=== PATIENT | male | born 1960 | race Hispanic/Latino ===

== ENCOUNTER → 2017-10-22 | Day surgery (SDC) | payer MEDICARE, OTHER ==
[~2017-10-22] MED LIST: ALPRAZOLAM 0.5 MG TAB ONE; B COMPLEX1 EACH PO; COLACE100 MG PO; FEOSOL325 MG PO; HYOSCYAMINE SULFATE 0.5 MG/ML AMP ONE; LOSARTAN POTAS100 MG PO; METOPROLOL SUCC50 MG PO; MIDAZOLAM HCL 2 MG/2 ML VIAL ONE; NORCO 7.5-3251 EACH PO; PROPOFOL IV EMULSION 10 MG/ML 50 ML VIAL ONE; SIMETHICONE 40 MG/0.6 ML BTL ONE; ULTRAM 50MG50 MG PO
--- NOTE | 2017-10-22 11:02 | Operative Report ---
DATE OF PROCEDURE: October 22, 2017 PROCEDURE PERFORMED: Colonoscopy and polypectomy. REFERRING PHYSICIAN: Dr. Janet Kimbrough INDICATIONS FOR PROCEDURE: Colorectal cancer screening, occult blood in stools. MEDICATION: Patient was done under MAC. Please see anesthesiologist note. PROCEDURE IN DETAIL: With the patient in left lateral decubitus position, flexible fiberoptic Olympus colonoscope was inserted into the rectum with ease and advanced all the way to the cecum. An approximately 1.5 cm sessile flat lesion was noted in the cecum that was partially resected per snare electrocautery, and polypectomy site was hemoclipped. The scope was then withdrawn slowly and an approximately 8-mm sessile polyp was removed in the distal ascending colon. The transverse and descending as well as the sigmoid appeared to be within normal limits. One polyp was snared and 2 polyps were hot biopsied in the rectum. The scope was then retroflexed into the distal rectum and moderate-size internal hemorrhoids were noted, none of which was actively bleeding. The scope was then straightened out. It was subsequently withdrawn. Patient tolerated the procedure well. IMPRESSION: 1. Cecal approximately 1.5 cm sessile flat lesion was partially resected per snare electrocautery, and polypectomy site was hemoclipped. 2. Ascending colon polyp, snared. 3. Rectal polyps x3, 1 snared and 2 hot biopsied. 4. Internal hemorrhoids, none actively bleeding. PLAN: Follow up histology. Initiate high-fiber low-fat diet. Initiate high-fiber supplement. Patient will need a repeat colonoscopy in 2 to 3 months to re-evaluate polypectomy site and cecum and to remove any residual polypoid tissue. Job#: [id number] cc:JANET KIMBROUGH MD
== END | disposition home or self-care (01) ==
LOC: OR 06:01
PROVIDERS: ATTEND Internal Medicine Gastroenterology
DX: Z12.11 Encounter for screening for malignant neoplasm of colon (principal); R19.5 Other fecal abnormalities; I10 Essential (primary) hypertension; R62.50 Unspecified lack of expected normal physiological development in childhood; K64.8 Other hemorrhoids; D12.7 Benign neoplasm of rectosigmoid junction; D12.2 Benign neoplasm of ascending colon; D12.0 Benign neoplasm of cecum; Z01.810 Encounter for preprocedural cardiovascular examination
CPT/HCPCS: 45384; 45385; 88305; 93005; J1980; J2250; 44391